=== PATIENT | male | born 1995 | race Caucasian/White ===

== ENCOUNTER 2023-07-24 22:03 | Emergency (ER) | payer OTHER ==
[~2023-07-24] VITALS: Ht 172.7 cm; Wt 75.0 kg
[~2023-07-24 22:03] MED LIST: AMOXICILLIN 8751 TAB PO
[2023-07-24] MEDS ORDERED: Amoxicillin/Clavulanate K+ 875/125 MG TAB PO ONE (22:30)
[2023-07-24 22:41] VITALS: BP 126/82; PULSE 59; TEMP 98.1
== END 2023-07-24 22:40 | disposition home or self-care (01) ==
LOC: COL.ER 22:03
DX: S61.250A Open bite of right index finger without damage to nail, initial encounter (principal); W55.01XA Bitten by cat, initial encounter